=== PATIENT | female | born 1995 | race Caucasian/White ===

== ENCOUNTER 2023-05-28 10:41 | Emergency (ER) | payer BC ==
[~2023-05-28] VITALS: Ht 157.5 cm; Wt 64.4 kg
[2023-05-28] MEDS ORDERED: FAMOTIDINE/PF 20 MG in 0.9 % SODIUM CHLORIDE 8 ML IV PUSH STA (11:43)
[2023-05-28] MEDS ORDERED: DIPHENOXYLATE HCL/ATROPINE 1 UDTAB TABLET PO ONE (11:45)
[2023-05-28] MEDS ORDERED: 0.9 % SODIUM CHLORIDE 1,000 ML IV SCH (11:45)
[2023-05-28] MEDS ORDERED: ONDANSETRON HCL 2 MG/ML VIAL IV ONE (11:45)
[2023-05-28 12:58] LABS: HEMATOCRIT 38.9 % (36.0-45.00); HEMOGLOBIN 13.9 g/dL (12.0-15.00); MEAN CELL VOLUME 89.5 fL (80.00-100.00); MEAN CORPUSCULAR HEMOGLOBIN 31.9 pg (27.00-32.0); MEAN CORPUSCULAR HGB CONC 35.7 g/dl (32.0-36.0); PLATELET COUNT 202 K/uL (150-450); RED BLOOD COUNT 4.35 M/uL (4.00-6.00)
[2023-05-28 13:29] LABS: URINE APPEARANCE Clear; URINE BACTERIA 476.2 uL (0.0-1933); URINE BILIRRUBIN Negative (NEGATIVE); URINE BLOOD Negative; URINE COLOR Yellow; URINE EPITHELIAL CELLS 9.2 uL (0.0-38.8); URINE GLUCOSE Negative (NEGATIVE); URINE LEUKOCYTE Negative; URINE NITRATE Negative; URINE PROTEIN Negative (NEGATIVE); URINE RBC 6.7 uL (0.0-20.8); URINE UROBILINOGEN 0.2 E.U./dl; URINE WBC 2.6 uL (0.0-23.2)
[2023-05-28 13:30] LABS: BILIRUBIN TOTAL 0.64 mg/dL (0.3-1.2); CALCIUM 8.6 mg/dL (8.5-10.1); CREATININE SERUM 0.77 mg/dL (0.55-1.02); GFR 88.63; GLOBULINA 3.5 G/DL (2.4-3.5); POTASSIUM 3.7 mEq/L (3.5-5.1); TOTAL PROTEIN 7.5 gm/dL (6.4-8.2)
[2023-05-28] MEDS ORDERED: ONDANSETRON ODT8 MG PO (13:50)
[2023-05-28] MEDS ORDERED: PEPCID AC20 MG PO (13:50)
== END 2023-05-28 14:50 | disposition home or self-care (01) ==
LOC: ER 10:41
PROVIDERS: General Practice
DX: R19.7 Diarrhea, unspecified (principal); R11.10 Vomiting, unspecified